=== PATIENT | female | born 1980 | race Caucasian/White ===

== ENCOUNTER 2018-09-08 16:58 | Inpatient (IN) | payer OTHER | END 2018-09-10 11:00 | disposition home or self-care (01) | LOC: JLDR 16:58 → J3W 21:54 ==

== ENCOUNTER 2021-10-08 17:00 | Inpatient (IN) | payer OTHER ==
[2021-10-08 19:56] VITALS: BMI 24.3
[2021-10-08] MEDS ORDERED: AMPICILLIN SODIUM 2 GM VIAL ONE (20:20)
[2021-10-08 20:21] LABS: BASO % 0.2 % (0-2.0); EOS % 0.8 % (0-4.5); HEMATOCRIT 33.8 % (32.4-45.2); HEMOGLOBIN 11.2 GM/dL (10.7-15.3); LYMPH % 19.2 % (8-40); MCH 29.5 pg (25.7-33.7); MEAN CELL VOLUME 89.1 fl (80-96); MEAN PLT VOLUME 10.4 fl (7.5-11.1); MONO % 7.4 % (3.8-10.2); NEUT % 72.4 % (42.8-82.8); PLATELET COUNT 182 10^3/uL (134-434); RBC 3.79 M/mm3 (3.60-5.2); RDW 13.5 % (11.6-15.6); WHITE BLOOD COUNT 6.6 K/mm3 (4.0-10.0)
[2021-10-08 20:29] LABS: INR 0.86 (0.83-1.09); PROTHROMBIN TIME (PATIENT) 9.9 SEC (9.7-13.0)
[2021-10-08 20:31] LABS: ACTIVATED PTT 25.4 SECONDS (25.2-36.5)
[2021-10-08] MEDS ORDERED: OXYTOCIN 30 UNITS in 0.9% NS 30 UNIT/500 ML INFUS.BAG IVPB ONE (20:31)
[2021-10-08 20:40] LABS: CALCIUM 8.8 mg/dL (8.5-10.1)
[2021-10-08 20:41] LABS: BLOOD UREA NITROGEN 14.9 mg/dL (7-18)
[2021-10-08] MEDS ORDERED: AMPICILLIN - 2 GM in SODIUM CHLORIDE 100 ML IVPB ONE (20:41)
[2021-10-08 20:43] LABS: CREATININE 0.6 mg/dL (0.55-1.3)
[2021-10-08] MEDS ORDERED: ELECTROLYTE-148 SOLN 1,000 ML IV SCH (20:45)
[2021-10-08] MEDS ORDERED: OXYTOCIN 30 UNITS in 0.9% NS 30 UNIT/500 ML INFUS.BAG IVPB SCH (20:45)
[2021-10-08] MEDS ORDERED: FENTANYL/BUPIVACAINE/NS/PF - PCEA - 50 ML DISP.SYRIN EP ONE (21:22)
[2021-10-08] MEDS ORDERED: NALOXONE HCL 0.4 MG/ML VIAL IVPUSH PRN (22:00)
[2021-10-08] MEDS ORDERED: FENTANYL/BUPIVACAINE/NS/PF - PCEA - 50 ML DISP.SYRIN EP SCH (22:00)
[2021-10-08] MEDS ORDERED: OXYTOCIN 20 UNITS in 0.9% NS 20 UNIT/1,000 ML INFUS.BAG IV ONE (22:22)
[2021-10-08] MEDS ORDERED: LIDOCAINE HCL 1% PRESERVATIVE FREE - 30ML VIAL ONE (22:22)
[2021-10-08] MEDS ORDERED: IBUPROFEN 600 MG TABLET (FP) PO PRN (23:01)
[2021-10-08] MEDS ORDERED: BISACODYL 10 MG SUPP.RECT RC PRN (23:01)
[2021-10-08] MEDS ORDERED: WITCH HAZEL 50% (TUCKS) 40 PAD/JAR PAD TP PRN (23:01)
[2021-10-08] MEDS ORDERED: BENZOCAINE 20% 57 GM BOTTLE TP PRN (23:01)
[2021-10-08] MEDS ORDERED: ACETAMINOPHEN 325 MG TABLET (FP) PO PRN (23:01)
[2021-10-08] MEDS ORDERED: oxyCODONE HCL 5 MG TABLET PO PRN (23:01)
[2021-10-08] MEDS ORDERED: BENZOCAINE 28 GM HEMORRHOIDAL OINTMENT TP PRN (23:01)
[2021-10-08] MEDS ORDERED: METHYLERGONOVINE MALEATE 0.2 MG/1 ML AMP IM PRN (23:01)
[2021-10-08] MEDS ORDERED: AMPICILLIN SODIUM 1 GM VIAL ONE (23:10)
[2021-10-08] MEDS ORDERED: OXYTOCIN 20 UNITS in 0.9% NS 20 UNIT/1,000 ML INFUS.BAG IV SCH (23:15)
[2021-10-09 00:38] LABS: CORD HCO3 23.7 mmHg (20-29); CORD PCO2 57.2 mmHg (30-78); CORD pH 7.236 (7.14-7.44)
[2021-10-09] MEDS ORDERED: AMPICILLIN - 1 GM in SODIUM CHLORIDE 100 ML IVPB SCH (00:41)
[2021-10-09 00:42] LABS: CORD HCO3 19.4 mmHg (20-29); CORD PCO2 38.2 mmHg (30-78); CORD pH 7.324 (7.14-7.44)
[2021-10-09 08:20] LABS: BASO % 0.2 % (0-2.0); EOS % 0.4 % (0-4.5); HEMATOCRIT 30.6 % (32.4-45.2); HEMOGLOBIN 10.3 GM/dL (10.7-15.3); LYMPH % 10.1 % (8-40); MCH 29.8 pg (25.7-33.7); MCHC 33.6 g/dl (32.0-36.0); MEAN CELL VOLUME 88.8 fl (80-96); MEAN PLT VOLUME 10.3 fl (7.5-11.1); MONO % 6.4 % (3.8-10.2); NEUT % 82.9 % (42.8-82.8); PLATELET COUNT 150 10^3/uL (134-434); RBC 3.45 M/mm3 (3.60-5.2); RDW 13.3 % (11.6-15.6); WHITE BLOOD COUNT 10.2 K/mm3 (4.0-10.0)
[2021-10-09] MEDS: FERROUS SO4 325 MG TABLET (FP) PO SCH ×3 (08:45→18:05)
[2021-10-09] MEDS: PRENATAL VITAMINS W/ FOLIC ACID TABLET (FP) PO SCH (10:05)
[2021-10-09] MEDS ORDERED: SENNOSIDES/DOCUSATE COMBO (SENNA PLUS) TABLET (UD) PO PRN (22:00)
[2021-10-09 22:14] VITALS: TEMP 98.1
[2021-10-10] MEDS: PRENATAL VITAMINS W/ FOLIC ACID TABLET (FP) PO SCH (09:17)
[2021-10-10] MEDS: FERROUS SO4 325 MG TABLET (FP) PO SCH (09:17)
[2021-10-10 09:20] VITALS: BP 124/83; PULSE 85
== END 2021-10-10 11:20 | disposition home or self-care (01) | DRG 560 ==
LOC: JDEL 17:00 → JLDR 19:00 → J3W 10-09 01:39
PROVIDERS: ADMIT Obstetrics & Gynecology; ATTEND Obstetrics & Gynecology
PROC: 10E0XZZ Delivery of Products of Conception, External Approach (ICD-10-PCS; principal; 2021-10-08)
DX: O99.824 Streptococcus B carrier state complicating childbirth (principal); Z3A.39 39 weeks gestation of pregnancy; Z37.0 Single live birth
CPT/HCPCS: 36415; 36600; 59409; 80048; 82803; 85025; 85610; 85730; 86780; 86850; 86900; 86901; C9803-CS; U0003; U0005